=== PATIENT | male | born 1950 | race Caucasian/White ===

== ENCOUNTER → 2017-04-07 | Day surgery (SDC) | payer BC ==
[2017-03-29 08:51] VITALS: Ht 180.3 cm; Wt 87.7 kg
[~2017-04-07] VITALS: Ht 180.3 cm; Wt 87.7 kg
[~2017-04-07] MED LIST: CMD2 PO; GLIP-199 PO; LIDOCAINE HCL 2% 2 ML VIAL (20MG/ML) ONE; LISI-461 PO; METF750T PO; METO50TA7 PO; MULT-1093 PO; PROPOFOL IV EMULSION 10 MG/ML 20 ML VIAL IV ONE; SENNTAB23 PO; SIMV20TA2 PO; WARF2TAB8 PO
--- NOTE | 2017-04-07 14:50 | Endo History and Physical ---
History & Physical Date of Service: Apr 07, 2017. Chief Complaint: cirrhosis Referring Physician: Dr. Sveta Bashir ND History of Present Illness For EGD Past Surgical History Hx Cardiac Surgery: No Hx Internal Defibrillator: No Hx Pacemaker: No Hx Abdominal Surgery: No Hx of Implantable Prosthesis: No Hx Post-Op Nausea and Vomiting: No Hx Cancer Surgery: Yes (SKIN EXCISION) Hx Thoracic Surgery: No Hx Orthopedic: No Hx Urinary Tract Surgery: No Family History None Social History Smoking Status: Current Some Day Smoker Hx Substance Use: No Hx Alcohol Use: Yes (2-3 BEERS DAILY) Allergies Coded Allergies: NO KNOWN DRUG ALLERGIES (Verified Allergy, Unknown, ., 03/29/17) Current Medications Reported Home Medications Medications Dose Route/Sig Max Daily Dose Days Date Category Stool Softener (Sennosides-Docusate Sodium) 1 Tab Tab 1 Tab PO QPM 03/29/17 Reported Centrum Silver 50+Men (Multiple Vitamins W/ Minerals) 1 Tab Tab 1 Tab PO QPM 03/29/17 Reported Glucophage Er (Metformin Hcl) 750 Mg Tab 750 Mg PO BID 03/29/17 Reported Glipizide Er (Glipizide) 10 Mg Tab 1 Tab PO QAM 90 03/29/17 Reported Glipizide Er (Glipizide) 10 Mg Tab 2 Tab PO QPM 90 03/29/17 Reported Toprol-Xl (Metoprolol Succinate) 50 Mg Tabcr 50 Mg PO QAM 03/29/17 Reported Zocor (Simvastatin) 20 Mg Tab 10 Mg PO QPM 03/29/17 Reported Zestril (Lisinopril) 10 Mg Tab 10 Mg PO QPM 03/29/17 Reported Coumadin (Warfarin Sod) 2 Mg Tab 3 Tab PO WK 03/29/17 Reported Jantoven (Warfarin Sodium) 2 Mg Tab 2 Tab PO 6XWK 03/29/17 Reported Vital Signs Weight (Kilograms): 87.73 Height (Feet): 5 Height (Inches): 11 Date Time Temp Pulse Resp B/P (MAP) Pulse Ox O2 Delivery O2 Flow Rate FiO2 04/07/17 13:23 36.1 75 20 167/108 (127) 99 Room Air Physical Exam General Appearance: WD/WN, + pertinent finding (jovan complexion) Respiratory/Chest: Respiratory effort: no dyspnea Cardiovascular: Heart Auscultation: RRR Abdomen: Inspection & Palpation: soft Assessment and Plan Cirrhosis, weight loss for EGD
--- NOTE | 2017-04-07 15:01 | Discharge Instructions ---
Endoscopy Patient Instructions Date / Procedure(s) Performed Apr 07, 2017. EGD Allergy Information Coded Allergies: NO KNOWN DRUG ALLERGIES (Verified Allergy, Unknown, ., 03/29/17) Discharge Date / Findings Apr 07, 2017. Normal EGD Medication Instructions Stopped Medication(s): stopped Metformin on Monday,Glipizide Monday took coumadin last . Restart Stopped Medication(s): resume meds Reported Home Medications Medications Dose Route/Sig Max Daily Dose Days Date Category Stool Softener (Sennosides-Docusate Sodium) 1 Tab Tab 1 Tab PO QPM 03/29/17 Reported Centrum Silver 50+Men (Multiple Vitamins W/ Minerals) 1 Tab Tab 1 Tab PO QPM 03/29/17 Reported Glucophage Er (Metformin Hcl) 750 Mg Tab 750 Mg PO BID 03/29/17 Reported Glipizide Er (Glipizide) 10 Mg Tab 1 Tab PO QAM 90 03/29/17 Reported Glipizide Er (Glipizide) 10 Mg Tab 2 Tab PO QPM 90 03/29/17 Reported Toprol-Xl (Metoprolol Succinate) 50 Mg Tabcr 50 Mg PO QAM 03/29/17 Reported Zocor (Simvastatin) 20 Mg Tab 10 Mg PO QPM 03/29/17 Reported Zestril (Lisinopril) 10 Mg Tab 10 Mg PO QPM 03/29/17 Reported Coumadin (Warfarin Sod) 2 Mg Tab 3 Tab PO WK 03/29/17 Reported Jantoven (Warfarin Sodium) 2 Mg Tab 2 Tab PO 6XWK 03/29/17 Reported Provider Instructions Activity Restrictions - No exercising or heavy lifting for 24 hours. - Do not drink alcohol the day of the procedure. - Do not drive a car or operate machinery until the day after the procedure. - Do not make any important decisions or sign important papers in 24 hours after the procedure. Following Day: - Return to full activity which may include returning to work/school. Diet Start your diet with liquids and light foods (jello, soup, juice, toast). Then eat your usual diet if not nauseated. Treatment For Common After Affects For mild abdominal pain, bloating, or excessive gas: - Rest - Eat lightly - Lie on right side Follow-Up Information Follow-up with Dr. Sveta FAIRBANKS as scheduled Anesthesia Information What You Should Know You have had a procedure that required some medicine to reduce anxiety and discomfort. This treatment is called moderate sedation. After receiving the treatment, you may be sleepy, but you will be able to breathe on your own. The effects of the treatment may last for several hours. Follow these instructions along with Activity/Diet recommendations noted above: * Do NOT do anything where dizziness or clumsiness would be dangerous. * Rest quietly at home today, then you can be up and about tomorrow. * Have a responsible person stay with you the rest of today. * You may have had an I.V. today. If so, you may take the dressing off later today. Recommendations Call your doctor if: * Trouble breathing * Continuous vomiting for more than 24 hours * Temperature above 101 degrees * Severe abdominal pain or bloating * Pain not relieved by pain medicine ordered * There is increased drainage or redness from any incision * A large amount of rectal bleeding greater than 2-3 tablespoons. (If you had a polyp/s removed or have hemorrhoids, a small amount of blood - from the rectum is to be expected.) * You have any unanswered questions or concerns. IN THE EVENT OF A SERIOUS EMERGENCY, GO TO THE NEAREST EMERGENCY ROOM Your discharge instructions were prepared by provider Sage Johnson. Patient Instructions Signature Page Santy Patel Patient (or Guardian) Signature/Date: I have read and understand the instructions given to me by my caregivers. Caregiver/RN/Doctor Signature/Date: The above-named patient and/or guardian has received patient instructions on this date. + Original Patient Signature Page (only) stays with chart. Please make copy for patient.
--- NOTE | 2017-04-07 15:06 | Anesthesiology Progress Note ---
Anesthesia Post Op Note Date & Time Apr 07, 2017 at 15:05 Vital Signs Pain Intensity: 0 Vital Signs Past 12 Hours Date Time Temp Pulse Resp B/P (MAP) Pulse Ox O2 Delivery O2 Flow Rate FiO2 04/07/17 13:23 36.1 75 20 167/108 (127) 99 Room Air Notes Mental Status: alert / awake / arousable, participated in evaluation Pt Amnestic to Procedure: Yes Nausea / Vomiting: adequately controlled Pain: adequately controlled Airway Patency, RR, SpO2: stable & adequate BP & HR: stable & adequate Hydration State: stable & adequate Anesthetic Complications: no major complications apparent
[2017-04-07 15:31] VITALS: BP 127/71; PULSE 79; O2SAT 96
--- NOTE | 2017-04-07 16:10 | GI REPORT ---
Procedure Date: 04/07/2017 2:53 PM Procedure: Upper GI endoscopy Indications: Weight loss, Cirrhosis Medicines: Propofol total dose 220 mg IV, Lidocaine 40 mg IV Complications: No immediate complications. Estimated Blood Loss: Estimated blood loss: none. Procedure: Pre-Anesthesia Assessment: - Prior to the procedure, a History and Physical was performed, and patient medications, allergies and sensitivities were reviewed. The patient's tolerance of previous anesthesia was reviewed. - The risks and benefits of the procedure and the sedation options and risks were discussed with the patient. All questions were answered and informed consent was obtained. After obtaining informed consent, the endoscope was passed under direct vision. Throughout the procedure, the patient's blood pressure, pulse, and oxygen saturations were monitored continuously. The Scope was introduced through the mouth, and advanced to the second part of duodenum. The upper GI endoscopy was accomplished without difficulty. The patient tolerated the procedure well. Findings: The esophagus was normal. The stomach was normal. The examined duodenum was normal. Impression: - Normal esophagus. - Normal stomach. - Normal examined duodenum. - No specimens collected. Recommendation: - Discharge patient to home (ambulatory). - Continue present medications. - Return to primary care physician PRN. Sage Johnson M.D. Sage Johnson MD 04/07/2017 3:03:54 PM This report has been signed electronically. Note Initiated On: 04/07/2017 2:53 PM I attest to the content of the Intraoperative Record and orders documented therein, exceptions below
== END | disposition home or self-care (01) ==
LOC: C.GI 12:59
PROVIDERS: ATTEND Internal Medicine Gastroenterology
DX: K74.60 Unspecified cirrhosis of liver (principal); R63.4 Abnormal weight loss; F17.210 Nicotine dependence, cigarettes, uncomplicated; Z79.899 Other long term (current) drug therapy; Z79.01 Long term (current) use of anticoagulants; I10 Essential (primary) hypertension; I48.91 Unspecified atrial fibrillation